=== PATIENT | female | born 1965 | race Caucasian/White ===

== ENCOUNTER 2021-10-11 21:48 | Emergency (ER) | payer BC ==
[~2021-10-11] VITALS: Ht 157.5 cm; Wt 96.0 kg
[2021-10-11 23:44] LABS: BASOPHILS % 0.4 % (0.0-2.0); EOSINOPHILS % 0.2 % (0.0-5.0); HEMOGLOBIN. 14.6 g/dL (12.0-16.0); LYMPHOCYTES % 12.4 % (20.0-50.0); MEAN CORPUSCULAR HEMOGLOBIN 33.2 pg (28.0-32.0); MEAN CORPUSCULAR VOLUME 97.6 fL (81.0-99.0); MEAN PLATELET VOLUME 7.9 fl (7.4-10.4); MONOCYTES % 6.1 % (2.0-8.0); NEUTROPHILS % 80.9 % (40.0-76.0); PLATELET 236 x1000/uL (130-400); RED BLOOD CELL COUNT 4.41 mill/uL (4.2-5.4); RED CELL DISTRIBUTION WIDTH 12.4 % (11.6-14.6)
[2021-10-11 23:53] LABS: CHLORIDE 104 mEq/L (98-107)
[2021-10-11 23:55] LABS: CLARITY URINE CLEAR (CLEAR); COLOR URINE YELLOW (YELLOW); KETONES URINE 3+ (NEGATIVE); LEUKOCYTE ESTERASE URINE NEGATIVE (NEGATIVE); NITRITE URINE NEGATIVE (NEGATIVE); OCCULT BLOOD URINE NEGATIVE (NEGATIVE); PH URINE 6.5 (4.5-8.0); PROTEIN URINE NEGATIVE (NEGATIVE); SPECIFIC GRAVITY URINE 1.024 (1.005-1.030); UROBILINOGEN URINE 0.2 E.U./dL (0.2-1.0)
[2021-10-12] MEDS ORDERED: MAGN296S70 MT (00:20)
[2021-10-12 00:30] VITALS: BP 132/75
== END 2021-10-12 00:58 | disposition home or self-care (01) ==
LOC: ER 21:48
DX: K59.00 Constipation, unspecified (principal)
CPT/HCPCS: 36415; 80053; 81003; 85025; 99283